=== PATIENT | male | born 1945 | race Caucasian/White ===

== ENCOUNTER 2016-11-02 17:21 | Emergency (ER) | payer MEDICARE, OTHER ==
--- NOTE | 2016-11-02 19:01 | CT ---
Name: AMANDA YOO Exam: CT head without contrast Comparison: None Clinical history: Ground-level fall. Hit head. Technique: Helical CT was performed through the head. Angled axial reconstructions were obtained. Sagittal and coronal reconstructions were obtained as well. No contrast was given. An automated dose reduction technique was used to minimize patient radiation dose. Findings: There is no shift of the midline structures. Mild atrophy is present. There is no mass effect or hemorrhage. Cisterns are uneffaced. CSF space at the midline in the posterior fossa is prominent which may represent an arachnoid cyst or maybe cisterna magna. Dense vascular calcifications are present. Visualized paranasal sinuses and mastoid air cells are normal. There is no fracture. Impression: Cerebral atrophy. There is no acute finding. Note: The above report was uploaded to [facility]'s electronic medical records system at 1856 hours.
--- NOTE | 2016-11-02 19:06 | CT ---
Name: AMANDA YOO Exam: CT of the cervical spine without contrast Comparison: None. Clinical history: Pain. Trauma Procedure: Helical CT using multidetector technique was applied to the cervical spine. No contrast was given. Sagittal, axial and coronal images are submitted. And automated dose reduction technique was used to minimize patient radiation dose. Findings: There is straightening of the normal cervical lordosis. Severe degenerative disc disease is present at C5-6, C6-7 and C7-T1. There is mild old anterior wedging of T1. Small nuchal calcifications are identified posteriorly at C4-5 and C7 which are sequela from prior trauma. There is at least moderate degenerative disc disease at C4-5 with mild degenerative disc disease at C3-4. There is partial fusion at C2-3. The odontoid is normal. Multilevel degenerative facet disease is present. There is no fracture or acute disc. Impression: 1. Advanced multilevel degenerative disease of the cervical spine 2. No acute bony abnormality Note: The above report was uploaded to [facility]'s electronic medical records system at 1901 hours.
--- NOTE | 2016-11-02 19:34 | RAD ---
Name: AMANDA YOO Exam: Right knee Comparison: None Clinical history: Ground-level fall. Findings: 4 views right knee are submitted. Bone density is within normal limits. Joint spaces are not suspiciously narrowed. There is minimal spurring of the patella. There is no acute fracture, dislocation, periosteal reaction or joint effusion. A fabella is identified. There is a large amount of calcific density projected in the musculature posterior to the proximal tibia and fibula. This is partially imaged. Prior trauma is favored. Impression: 1. No acute bony abnormality or joint effusion 2. Extensive partially imaged soft tissue calcification posterior to the proximal tibia and fibula. Soft tissue calcification from prior extensive trauma is favored. Correlate clinically.
--- NOTE | 2016-11-02 19:35 | RAD ---
Name: AMANDA YOO Exam: Right shoulder Comparison: None Clinical history: Ground-level fall. Right shoulder pain. Findings: 3 views of the right shoulder are submitted. Bone density is within normal limits. There is mild degenerative irregularity of the AC joint. Coracoclavicular joints normal. There is mild spurring at the inferior aspect of the glenoid. Subacromial space is maintained. There is no evidence for right shoulder fracture or dislocation. There is no suspicious soft tissue calcification. Visualized portion of the right lung is clear. Impression: No acute bony abnormality
--- NOTE | 2016-11-02 19:38 | RAD ---
Name: AMANDA YOO Exam: Right hand and right wrist Comparison: None Clinical history: Ground-level fall. Right hand and wrist pain. Findings: 3 views of right hand and 3 views of the right wrist are submitted. There is severe degenerative disease of the first carpometacarpal joint with fragmentation. Carpal alignment is normal. There is lucency at the distal margin middle phalanx of the index finger which is thought to be old trauma or other inflammation. There is no acute fracture, dislocation, periosteal fracture foreign body. Dense vascular calcifications are identified. Impression: 1. No acute bony abnormality 2. Severe degenerative disease of the right first carpometacarpal joint 3. Dense atherosclerosis
[2016-11-02] MEDS ORDERED: DIPHTH,PERTUSS(ACELL),TET VAC 0.5 ML VIAL IM V ONE (20:06)
== END 2016-11-02 20:36 | disposition home or self-care (01) ==
LOC: ED 17:21
DX: S09.90XA Unspecified injury of head, initial encounter (principal); M25.531 Pain in right wrist; S80.211A Abrasion, right knee, initial encounter; S40.211A Abrasion of right shoulder, initial encounter; M50.321 Other cervical disc degeneration at C4-C5 level; E11.9 Type 2 diabetes mellitus without complications; K21.9 Gastro-esophageal reflux disease without esophagitis; I10 Essential (primary) hypertension; Z79.4 Long term (current) use of insulin; Z23 Encounter for immunization; W18.30XA Fall on same level, unspecified, initial encounter; Y93.89 Activity, other specified; Y92.89 Other specified places as the place of occurrence of the external cause